=== PATIENT | male | born 1935 | race Caucasian/White ===

== ENCOUNTER 2020-09-14 22:56 | Inpatient (IN) ==
[2020-09-15] MEDS ORDERED: Naloxone 0.4 MG/ML INJ IVP PRN ×2 (02:16→15:01)
[2020-09-15] MEDS ORDERED: Acetaminophen 325 MG TABLET PO PRN ×2 (02:16→15:01)
[2020-09-15] MEDS ORDERED: Ondansetron ODT 4 MG TAB.RAPDIS SL PRN ×2 (02:16→15:01)
[2020-09-15] MEDS ORDERED: 0.9 % Sodium Chloride 1,000 ML IVC SCH ×2 (02:30→15:01)
[2020-09-15 05:08] LABS: Hematocrit 37.2 % (37.5-50.1); Hemoglobin 11.8 g/dL (12.9-16.9); Mean Corpuscular HGB Conc 31.7 g/dL (31.6-35.5); Mean Corpuscular Hemoglobin 32.3 pg (28.0-33.3); Mean Corpuscular Volume 101.9 fL (83.0-100.0); Mean Platelet Volume 10.9 fL (9.4-12.4); Monocytes # 1.3 K/mcL (0.0-1.3); Platelet Count 147 K/mcL (140-400); Red Blood Count 3.65 M/mcL (4.19-5.50)
[2020-09-15 05:16] LABS: INR 1.2
[2020-09-15 05:22] LABS: Calcium 8.4 mg/dL (8.6-10.3); Magnesium 1.9 mg/dL (1.6-2.6); Phosphorous 3.3 mg/dL (2.7-4.5); Potassium 4.3 mEq/L (3.5-5.1)
[2020-09-15] MEDS ORDERED: *HR* Metoprolol 5 MG/5 ML VIAL IVP ONE (05:33)
[2020-09-15 05:40] LABS: Lymphocytes # 21.8 K/mcL (0.6-4.6); Neutrophils # 9.9 K/mcL (1.6-8.9); Platelet Estimate Normal (Normal); Reactive Lymphocytes Present (Not Present); Smudge Cells Present (Not Present)
[2020-09-15] MEDS ORDERED: Piperacillin/Tazobactam 3.375 GM in 0.9 % Sodium Chloride Mini Bag 100 ML IVPB SCH (06:00)
[2020-09-15] MEDS ORDERED: *HR* Propofol 200 MG/20 ML VIAL IVP ONE (12:47)
[2020-09-15] MEDS ORDERED: *HR* FentaNYL (PF) 100 MCG/2 ML VIAL ONE (12:48)
[2020-09-15] MEDS ORDERED: Lidocaine -MPF 2% 2 ML VIAL ONE (12:49)
[2020-09-15] MEDS ORDERED: Dexamethasone 4 MG/ML VIAL ONE (12:50)
[2020-09-15] MEDS ORDERED: Ondansetron 4 MG/2 ML VIAL ONE (12:50)
[2020-09-15] MEDS ORDERED: Isovue-300 50ML VIAL ONE (12:52)
[2020-09-15] MEDS ORDERED: 0.9 % Sodium Chloride 1,000 ML ONE (15:04)
[2020-09-15] MEDS: Piperacillin/Tazobactam 3.375 GM in 0.9 % Sodium Chloride Mini Bag 100 ML IVPB SCH ×2 (16:41→23:47)
[2020-09-15] MEDS ORDERED: *HR* HYDROcodone/Acet 7.5/325 mg TABLET PO ONE (23:25)
[2020-09-16 02:23] LABS: Basophils % 0.2 %; Hematocrit 37.9 % (37.5-50.1); Immature Granulocytes % 0.2 % (0-4); Mean Platelet Volume 11.7 fL (9.4-12.4); Nucleated Red Blood Cells 0.1 /100 WBC (0)
[2020-09-16 02:25] LABS: Basophils # 0.1 K/mcL (0.0-0.2); Hemoglobin 11.9 g/dL (12.9-16.9); Lymphocytes % 81.1 %; Mean Corpuscular HGB Conc 31.4 g/dL (31.6-35.5); Monocytes # 0.2 K/mcL (0.0-1.3); Monocytes % 0.8 %; Platelet Count 147 K/mcL (140-400); Red Blood Count 3.61 M/mcL (4.19-5.50); Red Cell Distribution Width 14.7 % (11.5-14.5); Segmented Neutrophils % 17.7 %; White Blood Count 28.4 K/mcL (4.3-11.1)
[2020-09-16 02:40] LABS: Calcium 8.2 mg/dL (8.6-10.3); Potassium 4.7 mEq/L (3.5-5.1)
[2020-09-16 04:08] LABS: Platelet Estimate Normal (Normal); Reactive Lymphocytes Present (Not Present); Smudge Cells Present (Not Present)
[2020-09-16] MEDS: Piperacillin/Tazobactam 3.375 GM in 0.9 % Sodium Chloride Mini Bag 100 ML IVPB SCH ×2 (07:50→15:16)
[2020-09-16] MEDS ORDERED: Furosemide 20 MG/2 ML VIAL IVP ONE (10:27)
[2020-09-16] MEDS ORDERED: Perflutren Lipid Microsphere 1.3 ML in 0.9 % Sodium Chloride 8.7 ML IVP PRN (15:18)
[2020-09-16] MEDS ORDERED: polyethylene glycoL 3350 17 GM POWD.PACK PO ONE (17:47)
[2020-09-16] MEDS: carvediloL 6.25 MG TABLET PO SCH (18:46)
[2020-09-17] MEDS: Piperacillin/Tazobactam 3.375 GM in 0.9 % Sodium Chloride Mini Bag 100 ML IVPB SCH ×4 (00:19→23:51)
[2020-09-17 06:26] LABS: Basophils % 0.4 %; Immature Granulocytes % 0.2 % (0-4); Mean Platelet Volume 11.5 fL (9.4-12.4)
[2020-09-17 06:27] LABS: Basophils # 0.1 K/mcL (0.0-0.2); Eosinophils # 0.2 K/mcL (0.0-0.6); Eosinophils % 0.8 %; Hematocrit 35.6 % (37.5-50.1); Hemoglobin 11.4 g/dL (12.9-16.9); Lymphocytes # 21.8 K/mcL (0.6-4.6); Lymphocytes % 80.1 %; Mean Corpuscular Hemoglobin 32.5 pg (28.0-33.3); Mean Corpuscular Volume 101.4 fL (83.0-100.0); Monocytes # 0.8 K/mcL (0.0-1.3); Monocytes % 2.8 %; Neutrophils # 4.3 K/mcL (1.6-8.9); Nucleated Red Blood Cells 0.1 /100 WBC (0); Platelet Count 157 K/mcL (140-400); Red Blood Count 3.51 M/mcL (4.19-5.50); Red Cell Distribution Width 14.7 % (11.5-14.5); Segmented Neutrophils % 15.7 %; White Blood Count 27.2 K/mcL (4.3-11.1)
[2020-09-17 06:50] LABS: BUN/Creatinine Ratio 25 (6-26); Blood Urea Nitrogen 32 mg/dL (8-23); Calcium 8.5 mg/dL (8.6-10.3); Carbon Dioxide 28 mEq/L (23-29); Chloride 107 mEq/L (98-107); Glucose 160 mg/dL (70-105); Osmolality,Calculated 306 (280-300); Potassium 3.8 mEq/L (3.5-5.1); Sodium 143 mEq/L (136-145); eGFR For African Americans > 60 (> 60); eGFR For Non-African Americans 53 (> 60)
[2020-09-17 06:55] LABS: Platelet Estimate Normal (Normal); Reactive Lymphocytes Present (Not Present); Smudge Cells Present (Not Present)
[2020-09-17] MEDS: Ascorbic Acid 500 MG TABLET PO SCH (07:40)
[2020-09-17] MEDS: amLODIPine 5 MG TABLET PO SCH (07:40)
[2020-09-17] MEDS: Aspirin Enteric Coated 81 MG Tablet PO SCH (07:40)
[2020-09-17] MEDS: carvediloL 6.25 MG TABLET PO SCH ×2 (07:40→16:17)
[2020-09-17] MEDS: Sennosides/Docusate Sodium TABLET PO SCH ×2 (13:23→21:00)
[2020-09-17] MEDS: Finasteride 5 MG TABLET PO SCH (13:23)
[2020-09-17] MEDS: polyethylene glycoL 3350 17 GM POWD.PACK PO SCH (13:24)
[2020-09-17 17:40] LABS: ABG Base Excess 4 mEq/L (-2 to 3); ABG HCO3 29 mEq/L (21-27); ABG Oxygen Saturation 89 % (95-98); ABG PCO2 46 mmHg (35-45); ABG PH 7.41 pH Units (7.32-7.45); ABG PO2 56 mmHg (85-104); ABG TCO2 30 mEq/L (20-26)
[2020-09-17] MEDS: *HR* Heparin 5,000 UNIT/ML VIAL SQ SCH (18:29)
[2020-09-18 00:41] LABS: Color,Urine Light-Orange (Yellow)
[2020-09-18 00:42] LABS: Bilirubin,Urine Negative (Negative); Blood,Urine Large (Negative); Clarity,Urine Turbid (Clear); Glucose,Urine (UA) Normal (Normal); Ketones,Urine Negative (Negative); Nitrite,Urine Negative (Negative); Protein,Urine 100 mg/dL (Neg-Trace); Specific Gravity,Urine 1.026 (1.010-1.025); Urobilinogen,Urine Normal (Normal)
[2020-09-18 00:43] LABS: Leukocyte Esterase,Urine Moderate (Negative)
[2020-09-18 01:21] LABS: Hemoglobin 10.9 g/dL (12.9-16.9)
[2020-09-18 01:22] LABS: Hematocrit 34.4 % (37.5-50.1); Mean Corpuscular HGB Conc 31.7 g/dL (31.6-35.5); Mean Corpuscular Hemoglobin 32.7 pg (28.0-33.3); Mean Corpuscular Volume 103.3 fL (83.0-100.0); Mean Platelet Volume 11.5 fL (9.4-12.4); Platelet Count 152 K/mcL (140-400); Red Blood Count 3.33 M/mcL (4.19-5.50); Red Cell Distribution Width 14.5 % (11.5-14.5); White Blood Count 24.9 K/mcL (4.3-11.1)
[2020-09-18 01:41] LABS: Magnesium 1.8 mg/dL (1.6-2.6); Phosphorous 3.1 mg/dL (2.7-4.5)
[2020-09-18 01:42] LABS: BUN/Creatinine Ratio 27 (6-26); Blood Urea Nitrogen 32 mg/dL (8-23); Calcium 8.1 mg/dL (8.6-10.3); Carbon Dioxide 28 mEq/L (23-29); Chloride 106 mEq/L (98-107); Glucose 244 mg/dL (70-105); Osmolality,Calculated 309 (280-300); Potassium 3.7 mEq/L (3.5-5.1); Sodium 142 mEq/L (136-145); eGFR For African Americans > 60 (> 60); eGFR For Non-African Americans 57 (> 60)
[2020-09-18 02:40] LABS: Lymphocytes # 18.4 K/mcL (0.6-4.6); Monocytes # 0.5 K/mcL (0.0-1.3)
[2020-09-18 02:41] LABS: Platelet Estimate Normal (Normal); Reactive Lymphocytes Present (Not Present); Smudge Cells Present (Not Present)
[2020-09-18] MEDS: *HR* Heparin 5,000 UNIT/ML VIAL SQ SCH (06:34)
[2020-09-18] MEDS: carvediloL 6.25 MG TABLET PO SCH ×2 (08:59→18:16)
[2020-09-18] MEDS: Sennosides/Docusate Sodium TABLET PO SCH ×2 (08:59→20:04)
[2020-09-18] MEDS: Ascorbic Acid 500 MG TABLET PO SCH (08:59)
[2020-09-18] MEDS: Finasteride 5 MG TABLET PO SCH (08:59)
[2020-09-18] MEDS: Aspirin Enteric Coated 81 MG Tablet PO SCH (08:59)
[2020-09-18] MEDS: Furosemide 40 MG TABLET PO SCH (09:00)
[2020-09-18] MEDS: amLODIPine 5 MG TABLET PO SCH (09:00)
[2020-09-18] MEDS: Piperacillin/Tazobactam 3.375 GM in 0.9 % Sodium Chloride Mini Bag 100 ML IVPB SCH ×2 (09:00→18:15)
[2020-09-18] MEDS: polyethylene glycoL 3350 17 GM POWD.PACK PO SCH (09:00)
[2020-09-18] MEDS: Multivit/Ca/Min/Fe/FA 1 TAB TABLET PO SCH (09:02)
[2020-09-18 11:09] LABS: % Iron Saturation 24 % (20-55); Iron 65 mcg/dL (65-175); Transferrin 191 mg/dL (203-362)
[2020-09-18 11:26] LABS: Ferritin 113 ng/mL (20-250)
[2020-09-18 11:31] LABS: Folate 20.6 ng/mL (3.0-16.0)
[2020-09-18] MEDS: Insulin LISPRO 300 UNITS/3 ML VIAL SQ SCH ×2 (12:23→18:14)
[2020-09-19] MEDS: Piperacillin/Tazobactam 3.375 GM in 0.9 % Sodium Chloride Mini Bag 100 ML IVPB SCH ×2 (00:21→07:57)
[2020-09-19 05:40] LABS: Hemoglobin 11.3 g/dL (12.9-16.9); Mean Corpuscular HGB Conc 32.3 g/dL (31.6-35.5); Mean Corpuscular Hemoglobin 32.8 pg (28.0-33.3); Mean Corpuscular Volume 101.7 fL (83.0-100.0); Mean Platelet Volume 11.4 fL (9.4-12.4); Platelet Count 152 K/mcL (140-400); Red Blood Count 3.44 M/mcL (4.19-5.50); Red Cell Distribution Width 14.6 % (11.5-14.5); White Blood Count 23.1 K/mcL (4.3-11.1)
[2020-09-19 06:00] LABS: BUN/Creatinine Ratio 22 (6-26); Blood Urea Nitrogen 25 mg/dL (8-23); Calcium 8.7 mg/dL (8.6-10.3); Carbon Dioxide 28 mEq/L (23-29); Chloride 105 mEq/L (98-107); Glucose 230 mg/dL (70-105); Osmolality,Calculated 302 (280-300); Potassium 3.7 mEq/L (3.5-5.1); Sodium 140 mEq/L (136-145); eGFR For African Americans > 60 (> 60); eGFR For Non-African Americans > 60 (> 60)
[2020-09-19 07:09] VITALS: BP 164/78
[2020-09-19] MEDS: Aspirin Enteric Coated 81 MG Tablet PO SCH (07:56)
[2020-09-19] MEDS: Sennosides/Docusate Sodium TABLET PO SCH (07:56)
[2020-09-19] MEDS: Finasteride 5 MG TABLET PO SCH (07:56)
[2020-09-19] MEDS: Furosemide 40 MG TABLET PO SCH (07:57)
[2020-09-19] MEDS: carvediloL 6.25 MG TABLET PO SCH (07:57)
[2020-09-19] MEDS: Multivit/Ca/Min/Fe/FA 1 TAB TABLET PO SCH (07:57)
[2020-09-19] MEDS: amLODIPine 5 MG TABLET PO SCH (07:57)
[2020-09-19] MEDS: Ascorbic Acid 500 MG TABLET PO SCH (07:57)
[2020-09-19] MEDS: Insulin LISPRO 300 UNITS/3 ML VIAL SQ SCH (07:57)
[2020-09-19] MEDS: polyethylene glycoL 3350 17 GM POWD.PACK PO SCH (07:58)
[2020-09-19 10:41] LABS: ABG Base Excess 5 mEq/L (-2 to 3); ABG HCO3 30 mEq/L (21-27); ABG Oxygen Saturation 91 % (95-98); ABG PCO2 45 mmHg (35-45); ABG PH 7.43 pH Units (7.32-7.45); ABG PO2 60 mmHg (85-104); ABG TCO2 31 mEq/L (20-26)
== END 2020-09-19 13:25 | disposition home or self-care (01) | DRG 659 ==
LOC: 3NENU → SUATTDRO 09-15 01:18
PROVIDERS: ADMIT Student in an Organized Health Care Education/Training Program; ATTEND Internal Medicine